=== PATIENT | female | born 1965 | race Caucasian/White ===

== ENCOUNTER 2023-05-01 16:33 | Emergency (ER) | payer BC ==
[~2023-05-01] VITALS: Ht 160 cm; Wt 68.9 kg
[2023-05-01 16:51] VITALS: BP_SYST 165; PULSE 82; RESP 18; TEMP 98.3; O2SAT 97
[2023-05-01] MEDS ORDERED: DICL20GE TP (17:36)
[2023-05-01] MEDS ORDERED: IBUP-1971 PO (17:36)
[2023-05-01] MEDS ORDERED: IBUPROFEN 800 MG TABLET PO ONE (17:45)
[2023-05-01 17:48] VITALS: BP_SYST 176; PULSE 61; RESP 18; TEMP 97.8; O2SAT 99
== END 2023-05-01 17:51 | disposition home or self-care (01) ==
LOC: SED 16:33
DX: S92.535A Nondisplaced fracture of distal phalanx of left lesser toe(s), initial encounter for closed fracture (principal); Z79.899 Other long term (current) drug therapy; W22.8XXA Striking against or struck by other objects, initial encounter; Y93.89 Activity, other specified; Y92.89 Other specified places as the place of occurrence of the external cause; Y99.8 Other external cause status
CPT/HCPCS: 99284